=== PATIENT | male | born 1945 | race Two or more races ===

== ENCOUNTER 2025-07-31 07:19 | Day surgery (SDC) | payer MEDICARE, OTHER, SELFPAY ==
[2025-07-31] VITALS (8 sets, daily range): BP systolic 121–175; BP diastolic 73–134; BMI 34.1
[2025-07-31] MEDS: LOW STRENGTH ASPIRIN 324 MG PO (08:08)
[2025-07-31] MEDS: NSS 305 ML IV (08:16)
[2025-07-31 08:30] LABS: Glucose - Point of Care 97 mg/dl (70-99)
[2025-07-31] MEDS: NSS 153 IV (11:14)
--- NOTE | 2025-07-31 14:16 | ITS.CL.CATH ---
Bottom Filler - Catheterization
Cardiac Catheterization
Procedure Report:
RIGHT AND LEFT HEART CATHETERIZATION
Date of Procedure: July 31, 2025
Primary Care Physician: Dr. Candida Mahoney
Primary Policy Analyst: Myself
Procedures performed:
1: Coronary angiography
2: Left ventriculography
3: Right heart catheterization
4: Left internal mammary artery and saphenous vein bypass graft angiography
INDICATION: The patient is a 80-year-old man with a past medical history significant for permanent atrial fibrillation, coronary artery disease status post CABG, status post RCA stenting in 2020, hypertension, and bilateral knee arthritis who
presents with progressive dyspnea on exertion. He retired 2 years ago and admits he is been less active and is mostly limited by severe bilateral knee pain. He has no typical angina. Recent nuclear perfusion imaging suggested a medium to large
sized perfusion defect in the mid to apical inferior and apical locations that is mostly fixed. There was no transient ischemic dilation. Echo performed on July 23, 2025 showed preserved ejection fraction visually estimated at 50 to 55% with
no clear wall motion abnormalities. There is moderate mitral regurgitation.
ACCESS: The patient was prepped and draped in usual sterile fashion. A 6 [place] sheath was placed in the left radial artery using the [place] over the wire technique. A 5 [place] sheath was then placed in the right brachial vein using the same
technique.
HEMODYNAMIC FINDINGS (mmHg):
RA(a,v,m):*, 16, 14 patient in atrial fibrillation
RV(s/d,EDP): 59/7, 14
PA(s/d/m): 56/29, 38
PCWP(a,v,m): * , 35, 24
LV(s/d,EDP): 132/12, 16
Ao(s/d,m): 132/72, 93
Oxygen Saturations (mg/dl):
PA: 60% on room air
LV: 94% on room air
Cardiac Output/Index (l/min / l/min/m2):
Estimated Becca Method: 5.4 / 2.5
VALVE HEMODYNAMICS:
No significant aortic or mitral valve stenosis.
ANGIOGRAPHIC FINDINGS:
Single-plane Left Ventriculography in DEY Projection: Preserved left ventricular systolic function with no clear regional wall motion abnormality. Possible mild anterolateral hypokinesis. 1-2+ mitral regurgitation -does not appear severe however
is difficult to assess given the fact that the patient is in A-fib. Visually estimated ejection fraction 55%.
Coronary Angiography:
Dominance: Right
Left Main: Short, widely patent.
Left Anterior Descending: The LAD gives rise to 1 major diagonal branch that is medium caliber and appears widely patent. The proximal LAD has mild luminal irregularities. The mid LAD is occluded. The distal LAD fills via the patent [place] to LAD
graft.
Left Circumflex: The left circumflex has a ostial 50% stenosis followed by a mid 70% stenosis with distal competitive flow from a widely patent vein graft in the 2 large distal OM's.
Right Coronary: The right coronary artery was engaged with a 6 [place] JR4 catheter. There is extensive overlapping stenting extending from the mid RCA all the way down into the proximal posterior descending artery. The proximal right coronary
artery is mildly calcified with diffuse luminal irregularities. The long area of stenting is patent with at worst 50% diffuse in-stent restenosis. There is normal flow into a medium caliber posterior descending artery and a jailed small caliber
posterior left ventricular branch.
Other angiography:
1: COLUNGA to LAD: Graft and touchdown are widely patent.
2: SVG to OM: Widely patent graft and anastomosis. Inserts into large midportion of the large OM1 and retrograde fills a large distal branch.
Fluoroscopy Time (min): 8.4
Radiation Dose (mGy): 818
DAP (Gy.cm2): 60
Closure device: None. A TR band was applied for hemostasis at the left wrist. The brachial vein sheath will be pulled with manual pressure for hemostasis.
Complications: None.
ASSESSMENT:
1: Widely patent COL[place]GA to LAD, SVG to OM and [place] RCA with extensive prior stenting.
2: Preserved LV systolic function.
3: At least mild mitral regurgitation.
4: Moderate to severely elevated pulmonary pressures with elevated wedge pressure and large V waves on pulmonary capillary wedge tracing.
CONCLUSIONS and RECOMMENDATIONS:
1: Continue medical therapy for coronary artery disease, hypertension, hyperlipidemia, and diabetes mellitus.
2: Resume Xarelto tonight for permanent atrial fibrillation.
3: Will cut metoprolol tartrate dose from 100 twice daily to 50 mg twice daily in light of relatively low heart rate.
4: Add Lasix 20 mg daily given high filling pressures.
5: Continue lisinopril and Farxiga as ordered.
5: Clinical follow-up as scheduled.
Karolyn Ackerman M.D.
== END 2025-07-31 14:10 | disposition home or self-care (01) ==
LOC: CATH 07:19
PROVIDERS: ATTENDING PHYSICIAN Internal Medicine Interventional Cardiology; FAMILY PHYSICIAN Family Medicine
DX: I25.10 Atherosclerotic heart disease of native coronary artery without angina pectoris (principal); R06.09 Other forms of dyspnea; I10 Essential (primary) hypertension; Z95.1 Presence of aortocoronary bypass graft; Z95.5 Presence of coronary angioplasty implant and graft; I48.21 Permanent atrial fibrillation; I34.0 Nonrheumatic mitral (valve) insufficiency; E78.5 Hyperlipidemia, unspecified; E11.9 Type 2 diabetes mellitus without complications; Z79.01 Long term (current) use of anticoagulants
CPT/HCPCS: 82962; 93461; C1769; C1894; Q9967